=== PATIENT | female | born 1985 | race Caucasian/White ===

== ENCOUNTER 2018-09-27 17:18 | Observation (INO) ==
[2018-09-27] MEDS ORDERED: ATIVAN ONE (18:10)
[2018-09-27] MEDS ORDERED: ATIVAN IV ONE (18:13)
[2018-09-27] MEDS ORDERED: NS 1,000 ML IV ONE ×2 (18:20→20:50)
[2018-09-27] MEDS ORDERED: HALDOL IV ONE (18:24)
--- NOTE | 2018-09-27 18:51 | PROVIDER DOCUMENTATION ---
This chart was entered by Elenita Ramirez Scribe, acting as scribe for Srinivas Shields DO. [id number] Abuse/Overdose - General Source: EMS Unable to obtain history due to:: altered - History of Present Illness-Drug/Alcohol Severity: reports: severe <Srinivas Shields - Last Filed: 09/27/18 18:51> <Cherelle Shelby - Last Filed: 09/27/18 22:55> - General Stated Complaint: AGITATION, POSS. OD Time Seen by Provider: 09/27/18 17:18 Allergies/Adverse Reactions: Allergies Allergy/AdvReac Type Severity Reaction Status Date / Time No Known Allergies Allergy Verified 09/27/18 17:31 Home Medications: Home Medication List Medication Instructions Recorded Confirmed Last Taken Type Unobtainable [Home Meds 09/27/18 09/27/18 Unknown History Unobtainable] - History of Present Illness-Drug/Alcohol Nature of Presenting Problem: [id number] presents to ED by EMS cc severe agitation, possible drug overdose. EMS reports they were called by PD who was called by pt because pt came home from her sister's house, who is known to abuse Meth, and was rolling in grass, agitated. Pt is VERY agitated and having auditory hallucinations upon exam. (Srinivas Shields) Review of Systems - Adult - REVIEW OF SYSTEMS - ADULT ROS:: unobtainable per condition Constitutional: reports: no symptoms reported Eyes: reports: no symptoms reported Ears, Nose, Mouth & Throat: reports: no symptoms reported Cardiovascular: reports: no symptoms reported Respiratory: reports: no symptoms reported Gastrointestinal: reports: no symptoms reported Genitourinary: reports: no symptoms reported Musculoskeletal: reports: no symptoms reported Integumentary: reports: no symptoms reported Neurological: reports: no symptoms reported Psychiatric: reports: no symptoms reported Endocrine: reports: no symptoms reported Hematologic/Lymphatic: reports: no symptoms reported Allergic/Immunologic: reports: no symptoms reported All Other Systems: Reviewed and Negative <Srinivas Shields - Last Filed: 09/27/18 18:51> Past History - Adult - PAST MEDICAL HISTORY-ADULT Review of Records: reports: Nursing Assessment Review, Medications Reviewed, Social history reviewed & non-contributory. Major Childhood Illnesses: reports: denies history Cardiovascular: reports: denies history Respiratory: reports: denies history Gastrointestinal: reports: denies history Obstetrical/Gynecological: reports: - spont/elective, other (8 mos OB currently) Genitourinary: reports: denies history Musculoskeletal: reports: denies history Neurological: reports: denies history Psychiatric: reports: anxiety, other (ADD) Endocrine/Immune: reports: thyroid disorder Other Conditions: reports: denies history - PRIOR SURGERIES/PROCEDURES Surgical/Procedure History: reports: other (thyroid) - PRIOR HOSPITALIZATIONS Prior Hospitalizations: reports: for other non-related - IMMUNIZATION STATUS Childhood Immunizations: See Nurse Assessment Flu Vaccine: See Nurse Assessment - FAMILY HISTORY Family History: reviewed, not pertinent <Srinivas Shields - Last Filed: 09/27/18 18:51> Physical Exam-General - PHYSICAL EXAM-ADULT Initial Vital Signs Reviewed: Yes - CONSTITUTIONAL General Appearance: no apparent distress, anxious - EYES Eyes: PERRL/EOMI, pink conjunctivae. negative: meningismus, pale conjunctivae, photophobia - HEAD, EARS, NOSE, MOUTH & THROAT HENMT: moist mucous membranes, normal ENT inspection, TMs normal, pharynx normal . negative: angioedema, dental decay, hearing deficit - NECK Neck: non-tender, full range of motion, supple, normal inspection. negative: Brudzinski's sign, carotid bruit, C-spine tenderness - RESPIRATORY Respiratory: chest non-tender, lungs clear, normal breath sounds, no pleuratic chest pain, no respiratory distress, no accessory muscle use. negative: crackles, rales, rhonchi, stridor, wheezing - CARDIOVASCULAR Cardiovascular: normal peripheral pulses, regular rate, rhythm, no edema, no gallop, no JVD, no murmur. negative: bradycardia, tachycardia - GASTROINTESTINAL (ABDOMEN) Abdominal Exam: normal bowel sounds, non tender, soft. negative: distended, guarding, rigid, rebound, tenderness - LYMPHATIC Lymphatic: no adenopathy. negative: enlargement, striations - MUSCULOSKELETAL Back Exam: normal inspection, no CVA tenderness, no vertebral tenderness. negative: swelling Extremity: normal range of motion, non-tender, normal gait, normal inspection, no pedal edema, no calf tenderness, normal capillary refill, pelvis stable. negative: deformity, erythema, inflammation - SKIN Integumentary: normal color, normal turgor, warm/dry. negative: abrasion(s), c yanosis, diaphoresis, erythema, jaundice, rash <Srinivas Shields - Last Filed: 09/27/18 18:51> Progress - CHANGE OF SHIFT REPORT (ED Provider) 1 Time of Transfer: 17:00 Items Pending: Labs <Srinivas Shields - Last Filed: 09/27/18 18:51> - PLAN OF CARE/RESULTS Result Diagrams: 09/27/18 18:43 09/27/18 18:43 - CONSULTS/PCP/HOSPITALIST Notification #1 *Consult/PCP/Hospitalist*: Dr Figueroa Time Discussed: 22:55 Consult Disposition: Admit <Cherelle Shelby - Last Filed: 09/27/18 22:55> - PLAN OF CARE/RESULTS Progress/Plan/Lab Results: Vital Signs - 8 hr 09/27/18 17:24 09/27/18 17:29 09/27/18 17:30 Temperature 97.7 F Pulse Rate 108 H 104 H 106 H Respiratory Rate 20 16 22 Blood Pressure 143/91 144/121 143/91 O2 Sat by Pulse Oximetry 100 100 97 09/27/18 19:29 09/27/18 19:30 09/27/18 19:32 Temperature Pulse Rate 84 85 85 Respiratory Rate 15 17 15 Blood Pressure 95/63 105/59 O2 Sat by Pulse Oximetry 98 98 97 09/27/18 20:00 09/27/18 20:02 Temperature Pulse Rate 80 80 Respiratory Rate 14 18 Blood Pressure 99/65 O2 Sat by Pulse Oximetry 98 99 Laboratory Results - last 24 hr 09/27/18 09/27/18 09/27/18 18:43 18:43 18:43 WBC 9.69 RBC 3.99 L Hgb 12.6 Hct 36.5 L MCV 91.5 MCH 31.6 H MCHC 34.5 RDW Std Deviation 11.9 Plt Count 302 MPV 8.9 Immature Gran % (Auto) 0.2 Neut % (Auto) 70.4 Lymph % (Auto) 20.3 L Lincoln % (Auto) 8.6 Eos % (Auto) 0.3 Baso % (Auto) 0.2 Immature Gran # (Auto) 0.02 Neut # (Auto) 6.82 H Lymph # (Auto) 1.97 Lincoln # (Auto) 0.83 H Eos # (Auto) 0.03 Baso # (Auto) 0.02 Sodium 139 Potassium 3.1 L Chloride 102 Carbon Dioxide 23 L Anion Gap 14 BUN 19 Creatinine 0.7 Estimated GFR/1.73 m2 > 60 BUN/Creatinine Ratio 27 Glucose 82 Calculated Osmolality 279 Calcium 9.3 Total Bilirubin 1.05 H AST 30 ALT 15 Alkaline Phosphatase 74 Creatine Kinase 521 H Creatine Kinase Index 2.0 CK-MB (CK-2) 10.47 H Troponin T < 0.010 Total Protein 7.4 Albumin 4.6 Globulin 2.8 Albumin/Globulin Ratio 1.6 Urine Source Urine Color Urine Turbidity Urine pH Ur Specific [place] Urine Protein Ur Glucose (Stick) Ur Ketones (Stick) Urine Blood Urine Nitrite Urine Bilirubin Urobilinogen Dipstick Urine Leukocytes Urine WBC (Auto) Urine RBC (Auto) U Epithel Cells (Auto) Urine Bacteria (Auto) Salicylates Urine Opiates Screen Ur Oxycodone Screen Ur Methadone, Qual Acetaminophen Ur Barbiturates Screen Ur Phencyclidine Scrn Ur Amphetamines Screen U Benzodiazepines Scrn Urine Cocaine Screen U Cannabinoids Screen Plasma/Serum Ethyl Alc 09/27/18 09/27/18 09/27/18 18:43 18:43 20:30 WBC RBC Hgb Hct MCV MCH MCHC RDW Std Deviation Plt Count MPV Immature Gran % (Auto) Neut % (Auto) Lymph % (Auto) Lincoln % (Auto) Eos % (Auto) Baso % (Auto) Immature Gran # (Auto) Neut # (Auto) Lymph # (Auto) Lincoln # (Auto) Eos # (Auto) Baso # (Auto) Sodium Potassium Chloride Carbon Dioxide Anion Gap BUN Creatinine Estimated GFR/1.73 m2 BUN/Creatinine Ratio Glucose Calculated Osmolality Calcium Total Bilirubin AST ALT Alkaline Phosphatase Creatine Kinase Creatine Kinase Index CK-MB (CK-2) Troponin T Total Protein Albumin Globulin Albumin/Globulin Ratio Urine Source Urine Color Urine Turbidity Urine pH Ur Specific [place] Urine Protein Ur Glucose (Stick) Ur Ketones (Stick) Urine Blood Urine Nitrite Urine Bilirubin Urobilinogen Dipstick Urine Leukocytes Urine WBC (Auto) Urine RBC (Auto) U Epithel Cells (Auto) Urine Bacteria (Auto) Salicylates < 3.00 L Urine Opiates Screen NONE DETECTED Ur Oxycodone Screen NONE DETECTED Ur Methadone, Qual NONE DETECTED Acetaminophen < 1.2 L Ur Barbiturates Screen NONE DETECTED Ur Phencyclidine Scrn NONE DETECTED Ur Amphetamines Screen PRESUMPTIVE POSITIVE A U Benzodiazepines Scrn NONE DETECTED Urine Cocaine Screen NONE DETECTED U Cannabinoids Screen NONE DETECTED Plasma/Serum Ethyl Alc 09/27/18 09/27/18 20:30 21:33 WBC RBC Hgb Hct MCV MCH MCHC RDW Std Deviation Plt Count MPV Immature Gran % (Auto) Neut % (Auto) Lymph % (Auto) Lincoln % (Auto) Eos % (Auto) Baso % (Auto) Immature Gran # (Auto) Neut # (Auto) Lymph # (Auto) Lincoln # (Auto) Eos # (Auto) Baso # (Auto) Sodium Potassium Chloride Carbon Dioxide Anion Gap BUN Creatinine Estimated GFR/1.73 m2 BUN/Creatinine Ratio Glucose Calculated Osmolality Calcium Total Bilirubin AST ALT Alkaline Phosphatase Creatine Kinase Creatine Kinase Index CK-MB (CK-2) Troponin T < 0.010 Total Protein Albumin Globulin Albumin/Globulin Ratio Urine Source CLEAN CATCH Urine Color YELLOW Urine Turbidity CLEAR Urine pH 5.5 Ur Specific [place] 1.030 Urine Protein 30 A Ur Glucose (Stick) NEGATIVE Ur Ketones (Stick) 40 A Urine Blood NEGATIVE Urine Nitrite NEGATIVE Urine Bilirubin NEGATIVE Urobilinogen Dipstick NORMAL Urine Leukocytes NEGATIVE Urine WBC (Auto) <10 Urine RBC (Auto) <10 U Epithel Cells (Auto) <10 Urine Bacteria (Auto) NEGATIVE Salicylates Urine Opiates Screen Ur Oxycodone Screen Ur Methadone, Qual Acetaminophen Ur Barbiturates Screen Ur Phencyclidine Scrn Ur Amphetamines Screen U Benzodiazepines Scrn Urine Cocaine Screen U Cannabinoids Screen Plasma/Serum Ethyl Alc Orders Category Date Time Status CHEST-PORTABLE [RAD] Stat Exams 09/27/18 18:[address] HEAD W/O CONTRAST [CT] Stat Exams 09/27/18 20:33 Completed ACETAMINOPHEN [TDM] Stat Lab 09/27/18 18:43 Completed ALCOHOL BLOOD Stat Lab 09/27/18 18:43 Completed CBC WITH ELECTRONIC DIFF [HEME] Stat Lab 09/27/18 18:43 Completed CK PROFILE [SP CHEM] Stat Lab 09/27/18 18:43 Completed COMPREHENSIVE METABOLIC PANEL [CHEM] Stat Lab 09/27/18 18:43 Completed SALICYLATES [TDM] Stat Lab 09/27/18 18:43 Completed TROPONIN T Stat Lab 09/27/18 18:43 Completed TROPONIN T Stat Lab 09/27/18 21:33 Completed URINALYSIS W/POSS RFLX CULT [URINALYSIS] Stat Lab 09/27/18 20:30 Completed URINE DRUG SCREEN Stat Lab 09/27/18 20:30 Completed 0.9% Sodium Chloride Inj [Ns] 1,000 ml Med 09/27/18 18:20 Discontinued IV 500 mls/hr 0.9% Sodium Chloride Inj [Ns] 1,000 ml Med 09/27/18 20:50 Discontinued IV 999 mls/hr 0.9% Sodium Chloride Inj [Ns] 150 ml Med 09/27/18 20:50 Discontinued IV DIRECTED Haloperidol Lactate [Haldol] Med 09/27/18 18:24 Discontinued 1 mg IV NOW ONE Lorazepam [Ativan] Med 09/27/18 18:13 Discontinued 1 mg IV NOW ONE Lorazepam [Ativan] Med 09/27/18 18:10 Discontinued 2 mg .ROUTE .STK-MED ONE Potassium Phosphate 40 meq Med 09/27/18 20:15 Active 0.9% Sodium Chloride Inj [Ns] 250 ml IV NOW EKG [EKG] Stat Ther 09/27/18 20:30 Ordered Departure <Srinivas Shields - Last Filed: 09/27/18 18:51> - Departure Date of Disposition Decision: 09/27/18 Time of Disposition Decision: 22:54 Certified Medical Emergency: Emergent - Critical Care Note This patient required my direct & personal management of CC.: Yes Total Time (mins): 75 Critical Care Statement: This patient required my direct personal management to treat or rule out processes, the absence of which, could potentiallly result in sudden, clinically significant life or limb threatening deterioration. <Cherelle Shelby - Last Filed: 09/27/18 22:55> - Departure DIAGNOSIS: Amphetamine overdose, Altered mental status, Hypokalemia, Rhabdomyolysis Disposition: ADMITTED INPATIENT 09 Condition: Fair Referrals and Follow-Ups: Marcellus Bess MD [Primary Care Provider] - Attestation - Physician/ MADAN Attestation Patient care was provided by Advanced Practice Provider:: No The physician spent face to face time with patient:: Yes Advanced Practice Provider documentation review:: Supervising physician onsite and consulted in the evaluation and care of this patient. The physician did have a face to face encounter with the patient. <Srinivas Shields - Last Filed: 09/27/18 18:51> This chart was documented by the indicated scribe, (Elenita Ramirez, Oziel) and accurately reflects the services I performed and decisions made by , Srinivas Shields DO, as attested by the provider's signature.
[2018-09-27 19:13] LABS: BASO# 0.02 X1000 (0.0-0.2); BASO% 0.2 % (0.0-0.8); EOS# 0.03 X1000 (0.0-0.7); EOS% 0.3 % (0.0-10.0); HEMATOCRIT 36.5 % (37.0-47.0); HEMOGLOBIN 12.6 g/dL (12.0-16.0); IMM GRAN# 0.02 X1000 (0.0-0.04); IMM GRAN% 0.2 % (0.0-0.5); LYMPH# 1.97 X1000 (1.2-3.4); LYMPH% 20.3 % (20.5-51.1); MCH 31.6 PG (27-31); MCHC 34.5 g/dL (33-37); MCV 91.5 FL (81-99); MONO# 0.83 X1000 (0.11-0.59); MONO% 8.6 % (1.7-9.3); MPV 8.9 FL (7.4-10.4); NEUT# 6.82 X1000 (1.4-6.5); NEUT% 70.4 % (42.2-75.2); PLT 302 X1000 (130-400); RBC 3.99 XMIL (4.2-5.4); RDW 11.9 % (11.5-14.5); WBC 9.69 X1000 (4.8-10.8)
[2018-09-27 19:17] LABS: AGAP 14; ALB/GLOB RATIO 1.6; ALBUMIN 4.6 g/dL (3.5-5.0); ALKALINE PHOSPHATASE 74 U/L (32-104); BUN 19 mg/dL (8-22); CALCIUM 9.3 mg/dL (8.8-10.2); CHLORIDE 102 mmol/L (98-107); COSMO 279; CREATININE 0.7 mg/dL (0.5-0.9); ESTIMATED GFR > 60; GLUCOSE 82 mg/dL (70-104); GOT 30 U/L (10-30); GPT 15 U/L (10-36); POTASSIUM 3.1 mmol/L (3.5-5.1); SODIUM 139 mmol/L (136-145); TCO2 23 mmol/L (25-35); TOTAL BILIRUBIN 1.05 mg/dL (0.20-1.00); TOTAL PROTEIN 7.4 g/dL (6.3-8.3)
--- NOTE | 2018-09-27 19:17 | Diag Imaging Result Doc PS360 ---
EXAM: CHEST-PORTABLE HISTORY: drug overdose TECHNIQUE: Portable chest single view COMPARISON: None. FINDINGS: The lungs are well expanded. The heart is not enlarged. The vessels are not distended. There are no infiltrates. No effusion identified. IMPRESSION: Negative exam. Electronically signed by Peng Triana 09/27/2018 7:15 PM
[2018-09-27 19:30] LABS: CK PROFILE 521 U/L (24-173)
[2018-09-27 19:46] LABS: CK-MB 10.47 ng/mL (0.0-5.0)
[2018-09-27] MEDS ORDERED: POTASSIUM PHOSPHATE 40 MEQ in NS 250 ML IV ONE (20:15)
[2018-09-27 20:41] LABS: URINE SOURCE CLEAN CATCH
[2018-09-27] MEDS ORDERED: NS 150 ML IV ONE (20:50)
[2018-09-27 20:52] LABS: BILIRUBIN URINE NEGATIVE (NEGATIVE); BLOOD URINE NEGATIVE (NEGATIVE); COLOR YELLOW; GLUCOSE URINE NEGATIVE (NEGATIVE); KETONE URINE 40 mg/dL (NEGATIVE); LEUKOCYTES URINE NEGATIVE (NEGATIVE); NITRITE URINE NEGATIVE (NEGATIVE); PH URINE 5.5; PROTEIN URINE 30 mg/dL (NEGATIVE); TURBIDITY URINE CLEAR (CLEAR); UR EPITHELIAL CELLS <10 /HPF (<10); URINE BACTERIA NEGATIVE /HPF; URINE RBC <10 /HPF (<10); URINE WBC <10 /HPF (<10); UROBILINOGEN URINE NORMAL (NORMAL)
--- NOTE | 2018-09-27 21:01 | Diag Imaging Result Doc PS360 ---
EXAM: CT HEAD W/O CONTRAST HISTORY: AMS TECHNIQUE: CT head without contrast COMPARISON: None. FINDINGS: No parenchymal hemorrhage. No epidural or subdural hematoma. No subarachnoid hemorrhage. No mass identified on this noncontrasted exam. No hydrocephalus. No sinus opacification. IMPRESSION: No hemorrhage. Negative brain CT without contrast. This exam was performed using automated exposure control, adjustment of mA or kV according to patient size, and/or use of iterative reconstruction technique. Electronically signed by Peng Triana 09/27/2018 8:59 PM
[2018-09-27 21:07] LABS: ACETAMINOPHEN < 1.2 ug/mL (10-30); SALICYLATES < 3.00 mg/dL (3-10)
[2018-09-27 21:25] LABS: UR AMPHETAMINES QUAL PRESUMPTIVE POSITIVE (NONE DETECT); UR BARBITUATES QUAL NONE DETECTED (NONE DETECT); UR BENZODIAZEPIN QUAL NONE DETECTED (NONE DETECT); UR CANNABINOIDS QUAL NONE DETECTED (NONE DETECT); UR COCAINE QUAL NONE DETECTED (NONE DETECT); UR METHADONE QUAL NONE DETECTED (NONE DETECT); UR OPIATES QUAL NONE DETECTED (NONE DETECT); UR OXYCODONE QUAL NONE DETECTED (NONE DETECT); UR PCP QUAL NONE DETECTED (NONE DETECT)
[2018-09-27] MEDS ORDERED: ZOFRAN IV PRN (23:03)
[2018-09-27] MEDS ORDERED: TYLENOL PO PRN (23:03)
[2018-09-28] MEDS: NS 1,000 ML IV SCH ×3 (00:04→15:15)
--- NOTE | 2018-09-28 00:22 | HISTORY AND PHYSICAL ---
CHIEF COMPLAINT: Altered mental status. HISTORY OF PRESENT ILLNESS: This is a 33-year-old female who came into the emergency room via EMS with severe agitation. EMS reports they were called by the police department who were called by the patient's . Apparently, the patient came home from the sister's house who is known to abuse methamphetamine. She was very agitated and rolling around in the grass outside. On arrival to the emergency room, she was very agitated, having auditory hallucinations on examination. She was given Ativan and Haldol and is sedated at this point so no further information could be obtained during the examination. It looks like the patient has a history similar to this in 2018 where she was found praying in the yard. I believe she was 32 weeks at that time. Patient did take Adderall as well as I believe opioids and has abused them in the past. No real history of mental illness apparently. Past medical history includes chronic back pain, cervical dysplasia and ADD. At any rate, she will be admitted in observation status to the ICU for further evaluation and treatment. PAST MEDICAL HISTORY: See HPI. PREVIOUS SURGICAL HISTORY: She had a salpingectomy, something related to her thyroid I am unsure of what. SOCIAL HISTORY: . Lives with her . I believe she has 3 or 4 children, I am unsure. No history of tobacco and alcohol or illicit drug use was listed. FAMILY HISTORY: Unknown. There was no family at the bedside. REVIEW OF SYSTEMS: This could not be obtained related to patient's mental status. PHYSICAL EXAMINATION: VITAL SIGNS: Temperature 97.8, pulse 80, respirations 18, blood pressure 99/65, oxygen saturation 99% on room air. GENERAL: A 33-year-old female well developed, well nourished, lying in the ER stretcher, is obtunded related to sedation, does reflex to stimulus. HEENT: Head is atraumatic, normocephalic. Pupils equal, round, reactive to light. Extraocular eye movement intact. Sclerae are anicteric. Conjunctiva is not pale. Oral mucosa is dry. NECK: Supple. No JVD. No thyromegaly. Trachea is midline. No cervical lymphadenopathy. CARDIAC: S1, S2 appreciated. No murmurs, gallops, rubs. LUNGS: Clear to auscultation bilaterally. No rhonchi, wheezes, rales. Symmetric rise and fall with respirations. ABDOMEN: Soft, nondistended, nontender. Bowel sounds present all 4 quadrants, normoactive. No pulsatile mass. No organomegaly. EXTREMITIES: No clubbing, cyanosis or edema. One-plus pedal pulses bilaterally. GENITOURINARY: No bladder distention. Patient voids. Otherwise deferred. NEUROLOGIC: Obtunded related to sedation. She was having hallucinations and agitated on arrival. Neurological examination could not be completed. She does reflex to deep stimulus. DIAGNOSTIC DATA: CT of the head was negative. Chest x-ray: No effusion, infiltrates or edema. LABORATORY DATA: Hemoglobin 12.6. Hematocrit 36.5. Sodium 139. Potassium 3.1. Chloride 102. Carbon dioxide 23. BUN 19. Creatinine 0.7. Glucose 82. Total bilirubin 1.05. Urine unremarkable. Toxicology screen positive for opioids. ASSESSMENT AND PLAN: 1. Probable drug overdose. We will hydrate. Place in ICU for monitoring. She is sedated at this time. We will continue to monitor patient closely. 2. History of opioid and amphetamine abuse, aware. 3. Hypokalemia. We will replete and recheck. 4. Hyperbilirubinemia. Unsure if this is transient. It has been normal on previous exams. We will recheck a CMP tomorrow morning after patient is hydrated. May pursue a right upper quadrant ultrasound if necessary. Further recommendations per patient clinical course. Dictated by LINDSEY Cain for Hunter Figueroa MD I have performed a face to face diagnostic evaluation. Labs/ Xrays- reviewed. Exam- Neruo- altered. A/P- AMS/ Drug overdose- Admit to ICU, supportive care, IV fluids, Neuro checks. Dr. Figueroa cc: LINDSEY Cain MD [facility]
[2018-09-28 06:35] LABS: BASO# 0.03 X1000 (0.0-0.2); BASO% 0.5 % (0.0-0.8); EOS# 0.19 X1000 (0.0-0.7); EOS% 3.5 % (0.0-10.0); HEMATOCRIT 36.1 % (37.0-47.0); LYMPH# 2.07 X1000 (1.2-3.4); LYMPH% 37.8 % (20.5-51.1); MCH 31.7 PG (27-31); MCHC 33.2 g/dL (33-37); MCV 95.5 FL (81-99); MONO# 0.55 X1000 (0.11-0.59); MPV 9.2 FL (7.4-10.4); NEUT# 2.64 X1000 (1.4-6.5); NEUT% 48.2 % (42.2-75.2); PLT 292 X1000 (130-400); RBC 3.78 XMIL (4.2-5.4); RDW 12.7 % (11.5-14.5); WBC 5.48 X1000 (4.8-10.8)
[2018-09-28 07:01] LABS: AGAP 15; ALB/GLOB RATIO 1.4; ALBUMIN 3.6 g/dL (3.5-5.0); ALKALINE PHOSPHATASE 61 U/L (32-104); BUN 17 mg/dL (8-22); CALCIUM 7.7 mg/dL (8.8-10.2); CHLORIDE 108 mmol/L (98-107); COSMO 279; CREATININE 0.5 mg/dL (0.5-0.9); ESTIMATED GFR > 60; GLUCOSE 56 mg/dL (70-104); GOT 25 U/L (10-30); GPT 12 U/L (10-36); POTASSIUM 3.8 mmol/L (3.5-5.1); SODIUM 140 mmol/L (136-145); TCO2 17 mmol/L (25-35); TOTAL BILIRUBIN 1.17 mg/dL (0.20-1.00); TOTAL PROTEIN 6.1 g/dL (6.3-8.3)
--- NOTE | 2018-09-28 09:45 | PROGRESS NOTE ---
DATE: 09/28/2018 SUBJECTIVE: This morning, Ms. Bryson refers to be feeling a little better. She still does not know the circumstances around which she came to the hospital, who brought her to the hospital, and how she came is still unknown to her. She, however, knows that she is in the hospital and she thinks she is doing well. OBJECTIVE: Current Vital Signs: Blood pressure is 108/73, pulse of 91, respirations are 18, temperature is 98.0 degrees, patient is saturating 98% on room air. General Examination: Ms. Bryson is a 33-year-old, female. She is in bed. No seemingly in distress. HEENT: Mucosa is pink and moist. Anicteric. Acyanotic. Neck: Supple. Chest: Good air entry bilaterally. There were no crepitations. No rhonchi. Cardiovascular: Regular rate and rhythm. There are no murmurs, no rubs, no gallops. GI: Abdomen is soft, nontender. Bowel sounds present. Extremities: No pedal edema. Distal pulses are present. FOOD PRODUCT INSPECTOR: The patient is sleepy but she easily arousable and she follows basic commands. She seems to be very cooperative. Lab Work: WBC is 5.48, hemoglobin is 12.0, platelet count of 293,000. Chemistry is also reviewed and is unremarkable except for bicarb of 17. Glucose went down to about 56 but that has been treated this morning. TSH is normal. Imaging Studies: From admission, a chest x-ray was negative. A CT scan of the head was also negative. The patient's urine drug screen was positive for amphetamine. ASSESSMENT: 1. Altered mental status with extreme agitation and violent behavior on presentation, most likely secondary to drug overdose. The patient is currently calm, seems to be reasonable. The presentation was much characteristic of drug-induced psychosis. 2. History of opioid and amphetamine abuse. 3. History of attention deficit hyperactivity disorder, with chronic Adderall use disorder. PLAN: In general, Ms. Bryson seems to be a lot better today. We are going to discontinue the Duncan catheter, start her on a regular diet, transfer her to the medical floor. Re-evaluate her later this afternoon. If she is more alert and moving around, we will be able to discharge her if there is no risk of suicidal or homicidal intentions. cc: Wagner Alcazar MD
[2018-09-29] MEDS: NS 1,000 ML IV SCH ×2 (02:01→04:03)
[2018-09-29 06:34] LABS: HEMATOCRIT 35.3 % (37.0-47.0); HEMOGLOBIN 11.4 g/dL (12.0-16.0); MCH 31.8 PG (27-31); MCHC 32.3 g/dL (33-37); MCV 98.3 FL (81-99); RBC 3.59 XMIL (4.2-5.4); WBC 4.53 X1000 (4.8-10.8)
--- NOTE | 2018-09-29 07:25 | EKG Report ---
Test Performed on : 09/28/2018 06:16:13 AM Test Reason : chest pain Blood Pressure : / mmHG Vent. Rate : 085 BPM Atrial Rate : 085 BPM P-R Int : 130 ms QRS Dur : 090 ms QT Int : 434 ms P-R-T Axes : 073 075 066 degrees QTc Int : 516 ms Normal sinus rhythm. with sinus arrhythmia. Prolonged QT Abnormal ECG When compared with ECG of 28-SEP-2018 00:20, (Unconfirmed) No significant change was found Confirmed by Kim MILLIGAN, Patrick Hamm ([id number]) on 09/29/2018 5:05:48 PM
[2018-09-29 07:33] LABS: AGAP 13; ALBUMIN 3.3 g/dL (3.5-5.0); BUN 5 mg/dL (8-22); CALCIUM 7.7 mg/dL (8.8-10.2); CHLORIDE 110 mmol/L (98-107); CK TOTAL 212 U/L (24-173); COSMO 279; CREATININE 0.5 mg/dL (0.5-0.9); ESTIMATED GFR > 60; GLUCOSE 76 mg/dL (70-104); PHOSPHORUS 1.8 mg/dL (2.7-4.5); POTASSIUM 3.4 mmol/L (3.5-5.1); SODIUM 142 mmol/L (136-145); TCO2 19 mmol/L (25-35)
[2018-09-29] MEDS ORDERED: POTASSIUM PHOSPHATE 60 MEQ in NS 250 ML IV ONE (08:11)
[2018-09-29 12:48] VITALS: BP 121/71
--- NOTE | 2018-09-29 13:25 | DISCHARGE SUMMARY ---
ADMISSION DATE: 09/27/2018 DISCHARGE DATE: 09/29/2018 DISPOSITION: Home. FOLLOW-UP: Dr. Bess. CONSULTATION DURING THIS ADMISSION: None. INVASIVE PROCEDURES DONE DURING ADMISSION: None. IMAGING STUDIES OF SIGNIFICANCE: 1. A chest x-ray was negative. 2. A CT scan of the head without contrast showed no hemorrhage. Negative CT. ADMISSION DIAGNOSES: 1. Probable overdose. 2. History of opiate and amphetamine abuse. 3. Hypokalemia. DIAGNOSES AT TIME OF DISCHARGE: 1. Altered mental status on presentation associated with extreme agitation and violent behavior, most likely due to drug induced psychosis. 2. Opioid and amphetamine abuse. 3. History of attention deficit hyperactivity disorder. 4. Chronic Adderall use. DISCHARGE MEDICATIONS: Adderall as prescribed. PRESENTING COMPLAINT: Altered mental status. HISTORY OF PRESENTING COMPLAINT: Ms. Bryson is a 33-year-old female who has history of mental illness including ADHD on chronic Adderall, came to the emergency department because of severe agitation via EMS. It was reported that the patient went to her sister's house who is known to be using methamphetamine. When she went home, she was very agitated and was rolling around in the grass outside. Emergency Services were called and patient was brought to the emergency department where she was admitted for acute psychotic reaction. HOSPITAL COURSE: Ms. Bryson was admitted to the ICU. She was neuro and cardiac monitored, and was adequately fluid resuscitated. She did improve overnight, and she was transferred to the medical floor. She was able to tolerate her diet. She has been up and about. She feels well. She wants to be discharged. I think she is clinically stable. Substance abuse has been discussed extensively with her and cessation is recommended. All the discharge instructions have been discussed with her, and she voiced understanding. This morning her current vitals, blood pressure is 102/61, pulse of 62, respirations 19, and temperature 98.1 degrees. WATCH INSPECTOR FINAL MOVEMENT: Patient is awake, alert, and oriented. No focal neurological deficit. Her other physical exam is completely normal. TIME SPENT FOR DISCHARGE: 37 minutes. cc: MD Dr. Maria Alejandra Perla
== END 2018-09-29 13:26 | disposition home or self-care (01) ==
LOC: SUPCPDRO → ICU 17:18 → ED 17:18 → SUATTDRO 23:59 → ICU 09-28 00:40 → 4N 09-28 15:49
PROVIDERS: ATTEND Internal Medicine
CPT/HCPCS: 70450; 71010; 71045; 80053; 80069; 80101; 80196; 80301; 80307; 80320; 80324; 80329; 80345; 80346; 80353; 80358; 80361; 80365; 81001; 82003; 82055; 82550; 82553; 82948; 83992; 84443; 84484; 85025; 85027; 93005; 93010; G0431; G0434; G0479; G0480; G6038; G6039; G6040; J1630; J2060; J7030; J7050; XXXXX